=== PATIENT | male | born 1950 ===

== ENCOUNTER 2024-06-17 11:12 | Outpatient (CLI) | payer OTHER | END 2024-06-17 15:02 | disposition home or self-care (01) | LOC: LAB 11:12 | PROVIDERS: ATTEND Surgery | DX: Z20.822 Contact with and (suspected) exposure to COVID-19 (principal) ==

== ENCOUNTER 2024-06-17 11:15 | Inpatient (IN) | payer OTHER ==
[~2024-06-17] VITALS: Ht 167.6 cm; Wt 100.7 kg
[2024-06-24 08:00] VITALS: BP 124/80; O2SAT 97
[2024-06-24] MEDS ORDERED: CEFTRIAXONE SODIUM 2,000 MG VIAL ONE (08:12)
[2024-06-24] MEDS ORDERED: METRONIDAZOLE/SODIUM CHLORIDE 500 MG/100 ML PIGGYBACK IV ONE ×2 (08:12→14:07)
[2024-06-24] MEDS ORDERED: SUGAMMADEX SODIUM 200 MG/2 ML VIAL IV ONE (11:00)
[2024-06-24] MEDS ORDERED: MORPHINE SULFATE 4 MG/ML CARTRIDGE IV PRN (11:45)
[2024-06-24] MEDS ORDERED: ONDANSETRON HCL 2 MG/ML VIAL IV PRN (11:45)
[2024-06-24] MEDS ORDERED: OxyCODONE HCL 5 MG TABLET (ROXICODONE) PO PRN (11:45)
[2024-06-24] MEDS ORDERED: RINGERS SOLUTION,LACTATED 1,000 ML IV SCH (11:45)
[2024-06-24] MEDS ORDERED: ACETAMINOPHEN 500 MG GEL..CAP PO SCH (12:00)
[2024-06-24] MEDS ORDERED: MORPHINE SULFATE 4 MG/ML VIAL IV ONE ×2 (12:30→13:55)
[2024-06-24] MEDS ORDERED: FAMOTIDINE/PF 20 MG/2 ML VIAL IV NR (13:00)
[2024-06-24] MEDS ORDERED: LACTOBACILLUS ACIDOPHILUS 1 CAP CAP PO NR (13:00)
[2024-06-24] MEDS ORDERED: CIPROFLOXACIN IN 5 % DEXTROSE 400 MG/200 ML PIGGYBAG IV NR (13:00)
[2024-06-24] MEDS ORDERED: TAMSULOSIN HCL 0.4 MG CAP PO NR (13:00)
[2024-06-24] MEDS ORDERED: HYOSCYAMINE SULFATE 0.125 MG TAB.SUBL SL SCH (13:00)
[2024-06-24] MEDS ORDERED: GABAPENTIN 300 MG CAPSULE PO SCH (13:00)
[2024-06-24] MEDS ORDERED: METRONIDAZOLE/SODIUM CHLORIDE 500 MG/100 ML PIGGYBACK IV SCH (13:00)
[2024-06-24] MEDS ORDERED: CIPROFLOXACIN IN 5 % DEXTROSE 400 MG/200 ML PIGGYBAG IV ONE (14:07)
[2024-06-24] MEDS ORDERED: FAMOTIDINE/PF 20 MG/2 ML VIAL ONE (14:08)
[2024-06-24 16:00] VITALS: BP 127/64; O2SAT 98
[2024-06-24] MEDS ORDERED: CIPROFLOXACIN IN 5 % DEXTROSE 400 MG/200 ML PIGGYBAG IV SCH (21:00)
[2024-06-24] MEDS ORDERED: FAMOTIDINE/PF 20 MG/2 ML VIAL IV PUSH SCH (21:00)
[2024-06-25] MEDS ORDERED: LEVOTHYROXINE SODIUM 100 MCG TABLET PO SCH (06:00)
[2024-06-25 08:00] VITALS: BP 138/65; O2SAT 97
[2024-06-25 08:22] LABS: HEMATOCRIT 31.6 % (39.0-48.0); HEMOGLOBIN 9.9 g/dL (13-16.00); MEAN CELL VOLUME 77.7 fL (80.0-100.00); MEAN CORPUSCULAR HEMOGLOBIN 24.2 pg (27.00-32.0); MEAN CORPUSCULAR HGB CONC 31.2 g/dl (32.0-36.0); PLATELET COUNT 266 K/uL (150-450); RED BLOOD COUNT 4.06 M/uL (4.00-6.00); RED CELL DISTRIBUTION WIDTH 23.1 % (11.5-14.5)
[2024-06-25 08:30] LABS: ALBUMIN 2.5 gm/dL (3.4-5.0); CALCIUM 8.3 mg/dL (8.5-10.1); CREATININE SERUM 1.03 mg/dL (0.70-1.30); GFR 70.4; MAGNESIUM 1.7 mg/dL (1.8-2.4); PHOSPHOROUS 2.6 mg/dL (2.5-4.9); POTASSIUM 4.43 mEq/L (3.5-5.1)
[2024-06-25] MEDS ORDERED: TAMSULOSIN HCL 0.4 MG CAP PO SCH (09:00)
[2024-06-25] MEDS ORDERED: METOPROLOL SUCCINATE 50 MG TAB.SR.24H PO SCH (09:00)
[2024-06-25] MEDS ORDERED: LACTOBACILLUS ACIDOPHILUS 1 CAP CAP PO SCH (09:00)
[2024-06-25] MEDS ORDERED: SOD FERRIC GLUC COMPLX/SUCROSE 62.5 MG in 0.9 % SODIUM CHLORIDE 50 ML IV SCH (10:17)
[2024-06-25] MEDS ORDERED: Cyanocobalamin/Mecobalamin 1 TAB.SL SL SCH (10:17)
[2024-06-25] MEDS ORDERED: MAGNESIUM SULFATE IN WATER 50 ML IV NR (10:18)
[2024-06-25 16:00] VITALS: BP 109/73; O2SAT 95
[2024-06-25] MEDS ORDERED: ENOXAPARIN SODIUM 40 MG/0.4 ML SYRINGE SUBCUTANEO SCH (17:00)
[2024-06-26 00:33] VITALS: BP 133/60; O2SAT 94
[2024-06-26 08:00] VITALS: BP 120/70; O2SAT 97
[2024-06-26] MEDS ORDERED: ENOXAPARIN SODIUM 40 MG/0.4 ML SYRINGE SUBCUTANEO SCH (09:00)
[2024-06-26 11:20] LABS: HEMATOCRIT 31.6 % (39.0-48.0); HEMOGLOBIN 10.1 g/dL (13-16.00); MEAN CELL VOLUME 76.5 fL (80.0-100.00); MEAN CORPUSCULAR HEMOGLOBIN 24.4 pg (27.00-32.0); MEAN CORPUSCULAR HGB CONC 31.9 g/dl (32.0-36.0); PLATELET COUNT 303 K/uL (150-450); RED BLOOD COUNT 4.13 M/uL (4.00-6.00); RED CELL DISTRIBUTION WIDTH 23.1 % (11.5-14.5)
[2024-06-26 11:24] LABS: CALCIUM 8.4 mg/dL (8.5-10.1); CREATININE SERUM 1.03 mg/dL (0.70-1.30); GFR 70.4; POTASSIUM 4.64 mEq/L (3.5-5.1)
[2024-06-26] MEDS ORDERED: POTASSIUM PHOS,M-BASIC-D-BASIC 3 MM/ML VIAL IV NR (12:00)
[2024-06-26 16:00] VITALS: BP 118/72; O2SAT 95
[2024-06-27 00:09] VITALS: BP 102/65; O2SAT 93
[2024-06-27 06:24] LABS: HEMATOCRIT 29.9 % (39.0-48.0); HEMOGLOBIN 9.8 g/dL (13-16.00); MEAN CORPUSCULAR HGB CONC 32.9 g/dl (32.0-36.0); PLATELET COUNT 326 K/uL (150-450); RED BLOOD COUNT 3.93 M/uL (4.00-6.00); RED CELL DISTRIBUTION WIDTH 22.9 % (11.5-14.5)
[2024-06-27 07:15] LABS: ALBUMIN 2.3 gm/dL (3.4-5.0); CALCIUM 8.4 mg/dL (8.5-10.1); GFR 72.84; MAGNESIUM 2.1 mg/dL (1.8-2.4); POTASSIUM 4.47 mEq/L (3.5-5.1)
[2024-06-27 07:48] LABS: PHOSPHOROUS 1.6 mg/dL (2.5-4.9)
[2024-06-27 08:00] VITALS: BP 133/75; O2SAT 97
[2024-06-27] MEDS ORDERED: POTASSIUM PHOS,M-BASIC-D-BASIC 15 MM in 0.9 % SODIUM CHLORIDE 250 ML IV ONE (11:00)
[2024-06-28] VITALS: BP 157/71; O2SAT 96
[2024-06-28 07:48] VITALS: BP 129/69; O2SAT 96
[2024-06-28] MEDS ORDERED: INTESTINEX680 M1 PO (10:48)
[2024-06-28] MEDS ORDERED: HYOSCYAMINE0.125 M1 SL (10:48)
[2024-06-28] MEDS ORDERED: PAIN RELIEVER500 M2 PO (10:49)
== END 2024-06-28 14:34 | disposition home or self-care (01) | DRG 330 ==
LOC: O/R 06-24 05:25 → SURH 06-24 10:45
PROVIDERS: Internal Medicine Geriatric Medicine; Surgery; ADMIT Surgery; ATTEND Surgery
PROC: 07BB4ZZ Excision of Mesenteric Lymphatic, Percutaneous Endoscopic Approach (ICD-10-PCS; 2024-06-24)
PROC: 0DNW4ZZ Release Peritoneum, Percutaneous Endoscopic Approach (ICD-10-PCS; 2024-06-24)
PROC: 0DTF4ZZ Resection of Right Large Intestine, Percutaneous Endoscopic Approach (ICD-10-PCS; principal; 2024-06-24 10:45)
DX: C18.2 Malignant neoplasm of ascending colon (principal); K62.5 Hemorrhage of anus and rectum; R59.0 Localized enlarged lymph nodes; D64.9 Anemia, unspecified; K66.0 Peritoneal adhesions (postprocedural) (postinfection)